=== PATIENT | male | born 1975 | race Caucasian/White ===

== ENCOUNTER 2017-02-27 11:57 | Emergency (ER) | payer OTHER ==
[~2017-02-27] VITALS: Ht 165.1 cm; Wt 64.1 kg
[2017-02-27 11:58] VITALS: BP 119/79
[2017-02-27] MEDS ORDERED: BENZOCAINE 20% SPRAY 0.5ML TP ONE (12:30)
[2017-02-27] MEDS ORDERED: L.E.T SOLUTION TP ONE ×2 (12:30→12:31)
[2017-02-27] MEDS ORDERED: LIDOCAINE 1%, 20ML SQ ONE (12:30)
[2017-02-27] MEDS ORDERED: BENZOCAINE 20% SPRAY 0.5ML ONE (12:31)
[2017-02-27] MEDS ORDERED: LIDOCAINE 1%, 20ML ONE (12:31)
== END 2017-02-27 13:18 | disposition home or self-care (01) ==
LOC: ED 13:04
DX: K04.6 Periapical abscess with sinus (principal); F17.200 Nicotine dependence, unspecified, uncomplicated
CPT/HCPCS: 41800